=== PATIENT | male | born 1975 | race Caucasian/White ===

== ENCOUNTER 2018-10-20 14:58 | Inpatient (IN) | payer MEDICARE, MEDICAID ==
[~2018-10-20] VITALS: Ht 304.8 cm; Wt 70.8 kg
[2018-10-20] MEDS ORDERED: ASPIRIN 81MG TABLET PO ONE (15:30)
[2018-10-20] MEDS ORDERED: TRAMADOL 50MG TABLET PO ONE (15:45)
[2018-10-20] MEDS: METHOCARBAMOL 750MG TABLET PO SCH (16:13)
[2018-10-20] MEDS ORDERED: METHOCARBAMOL 750MG TABLET PO NR (16:30)
[2018-10-20] MEDS ORDERED: LORAZEPAM 1MG TABLET PO ONE (20:45)
[2018-10-20 23:18] LABS: CHLORIDE 106 mEq/L (98-107)
[2018-10-20 23:19] LABS: BASOPHILS % 0.6 % (0.0-2.0); EOSINOPHILS % 4.1 % (0.0-5.0); HEMOGLOBIN. 10.3 g/dL (14.0-18.0); LYMPHOCYTES % 26.1 % (20.0-50.0); MEAN CORPUSCULAR HEMOGLOBIN 20.4 pg (28.0-32.0); MEAN CORPUSCULAR VOLUME 65.2 fL (80.0-94.0); MEAN PLATELET VOLUME 8.5 fl (7.4-10.4); MONOCYTES % 6.3 % (2.0-8.0); NEUTROPHILS % 62.9 % (40.0-76.0); PLATELET 353 x1000/uL (130-400); RED BLOOD CELL COUNT 5.06 mill/uL (4.7-6.1)
[2018-10-20 23:29] LABS: PLATELET ESTIMATE NORMAL
[2018-10-21] MEDS: QUETIAPINE FUMARATE 100MG TABLET PO SCH ×2 (00:03→09:00)
[2018-10-21] MEDS: METHOCARBAMOL 750MG TABLET PO SCH ×2 (05:08→14:00)
[2018-10-21] MEDS ORDERED: LORAZEPAM 1MG TABLET PO ONE (05:15)
[2018-10-21] MEDS ORDERED: LORAZEPAM 2MG/ML CPJ IV ONE (05:30)
[2018-10-22] MEDS ORDERED: LORAZEPAM 0.5MG TABLET PO ONE (02:00)
[2018-10-22] MEDS ORDERED: VANCOMYCIN 1 G PREMIX 200 ML IV SCH (11:00)
[2018-10-22 12:33] LABS: CLARITY URINE CLOUDY (CLEAR); COLOR URINE YELLOW (YELLOW); KETONES URINE NEGATIVE (NEGATIVE); LEUKOCYTE ESTERASE URINE 3+ (NEGATIVE); NITRITE URINE NEGATIVE (NEGATIVE); OCCULT BLOOD URINE NEGATIVE (NEGATIVE); PH URINE 7.5 (4.5-8.0); PROTEIN URINE NEGATIVE (NEGATIVE); SPECIFIC GRAVITY URINE 1.012 (1.005-1.030); UROBILINOGEN URINE 0.2 E.U./dL (0.2-1.0)
[2018-10-22] MEDS ORDERED: LORAZEPAM 2MG/ML CPJ IM STA (13:03)
[2018-10-22] MEDS: METHOCARBAMOL 750MG TABLET PO SCH (13:48)
[2018-10-22] MEDS ORDERED: DIPHENHYDRAMINE 50MG/ML VIAL IM ONE (14:45)
[2018-10-22] MEDS ORDERED: LORAZEPAM 2MG/ML CPJ IM ONE (14:45)
[2018-10-22] MEDS ORDERED: ACETAMINOPHEN 325MG TABLET PO PRN (20:15)
[2018-10-22] MEDS ORDERED: DIPHENHYDRAMINE 50MG/ML VIAL IV PRN (20:15)
[2018-10-22] MEDS ORDERED: MAGNESIUM/ALUMINUM HYDROXIDE/SIMETHICONE 30ML UDC PO PRN (20:15)
[2018-10-22] MEDS ORDERED: GUAIFENESIN 200MG/10ML SUGAR FREE UDC PO PRN (20:15)
[2018-10-22] MEDS ORDERED: PIPERACILLIN/TAZ 3.375G PREMIX 50 ML IV SCH (20:15)
[2018-10-22] MEDS ORDERED: ONDANSETRON HCL 4MG/2ML INJ IV PRN (20:15)
[2018-10-22] MEDS ORDERED: QUETIAPINE FUMARATE 100MG TABLET PO NR (23:30)
[2018-10-23 02:47] VITALS: BP 110/73
[2018-10-23] MEDS: IBUPROFEN 600MG TABLET PO PRN ×2 (03:24→12:11)
[2018-10-23 03:30] VITALS: BP 110/73
[2018-10-23] MEDS: PIPERACILLIN/TAZ 3.375G PREMIX 50 ML IV SCH ×2 (06:00→14:22)
[2018-10-23] MEDS: SODIUM CHLORIDE 0.9% INJ 3ML FLUSH IVF SCH ×3 (06:00→22:00)
[2018-10-23] MEDS: FERROUS SULFATE 325MG TABLET PO SCH ×3 (07:50→17:50)
[2018-10-23] MEDS: VANCOMYCIN 750 MG PREMIX 150 ML IV SCH ×2 (08:00→16:17)
[2018-10-23 08:23] LABS: *AMPHETAMINES SCREEN URINE NEGATIVE (NEGATIVE); *BARBITURATES SCREEN URINE NEGATIVE (NEGATIVE); *BENZODIAZEPINES SCREEN URINE NEGATIVE (NEGATIVE); *COCAINE SCREEN URINE NEGATIVE (NEGATIVE)
[2018-10-23 08:24] LABS: CANNABINOID URINE SCREEN NEGATIVE (NEGATIVE); METHADONE URINE SCREEN NEGATIVE (NEGATIVE); OPIATES URINE SCREEN NEGATIVE (NEGATIVE); PHENCYCLIDINE URINE SCREEN NEGATIVE (NEGATIVE)
[2018-10-23] MEDS: QUETIAPINE FUMARATE 100MG TABLET PO SCH ×2 (08:34→21:00)
[2018-10-23] MEDS ORDERED: INFLUENZA VIRUS VACCINE(AFLURIA) 0.5ML SYR IM ONE (10:00)
[2018-10-23 12:00] VITALS: BP 97/60
[2018-10-23] MEDS: LORAZEPAM 1MG TABLET PO PRN ×2 (12:12→20:03)
[2018-10-23] MEDS: SODIUM HYPOCHLORITE 0.125% 473ML SOLUTION TOP SCH (14:22)
[2018-10-23] MEDS: HYDROCODONE/ACETAMINOPHEN 5/325MG TABLET PO PRN (18:24)
[2018-10-23 20:00] VITALS: BP 97/43
[2018-10-24] MEDS: SODIUM CHLORIDE 0.9% INJ 3ML FLUSH IVF SCH ×3 (06:39→22:03)
[2018-10-24] MEDS: FERROUS SULFATE 325MG TABLET PO SCH ×3 (07:50→17:24)
[2018-10-24] MEDS: QUETIAPINE FUMARATE 100MG TABLET PO SCH ×2 (08:20→20:38)
[2018-10-24] MEDS: HYDROCODONE/ACETAMINOPHEN 5/325MG TABLET PO PRN ×3 (08:20→21:33)
[2018-10-24] MEDS: SODIUM HYPOCHLORITE 0.125% 473ML SOLUTION TOP SCH (08:28)
[2018-10-24] MEDS: LORAZEPAM 1MG TABLET PO PRN ×2 (11:40→20:00)
[2018-10-24] MEDS: IPRATROPIUM/ALBUTEROL 0.5-3(2.5)MG/3ML NEB INH PRN (21:12)
[2018-10-25 04:00] VITALS: BP 132/80
[2018-10-25] MEDS: LORAZEPAM 1MG TABLET PO PRN ×3 (05:26→21:09)
[2018-10-25] MEDS: SODIUM CHLORIDE 0.9% INJ 3ML FLUSH IVF SCH ×3 (06:00→22:00)
[2018-10-25] MEDS: FERROUS SULFATE 325MG TABLET PO SCH ×3 (07:50→17:50)
[2018-10-25 08:00] VITALS: BP 135/86
[2018-10-25] MEDS: SODIUM HYPOCHLORITE 0.125% 473ML SOLUTION TOP SCH (09:00)
[2018-10-25] MEDS: HYDROCODONE/ACETAMINOPHEN 5/325MG TABLET PO PRN (09:04)
[2018-10-25] MEDS: QUETIAPINE FUMARATE 100MG TABLET PO SCH ×2 (09:11→20:42)
[2018-10-25 12:00] VITALS: BP 97/56
[2018-10-25] MEDS: PIPERACILLIN/TAZ 3.375G PREMIX 50 ML IV SCH (18:00)
[2018-10-25 20:00] VITALS: BP 129/70
[2018-10-25] MEDS ORDERED: DIPHENHYDRAMINE 50MG CAPSULE PO ONE (22:00)
[2018-10-25] MEDS: TRAZODONE HCL 100MG TABLET PO SCH (22:28)
[2018-10-25] MEDS ORDERED: ONDANSETRON HCL 4MG/2ML INJ IV PRN (23:15)
[2018-10-25] MEDS ORDERED: SODIUM CHLORIDE 0.9% 1,000 ML IV SCH (23:15)
[2018-10-25] MEDS ORDERED: ACETAMINOPHEN 325MG TABLET PO PRN (23:15)
[2018-10-25] MEDS ORDERED: DEXTROSE 50% WATER 50ML SYRINGE IV PRN (23:30)
[2018-10-26] VITALS: BP 89/56
[2018-10-26] MEDS: HYDROCODONE/ACETAMINOPHEN 5/325MG TABLET PO PRN (00:38)
[2018-10-26] MEDS: IPRATROPIUM/ALBUTEROL 0.5-3(2.5)MG/3ML NEB INH PRN (01:57)
[2018-10-26] MEDS: PIPERACILLIN/TAZ 3.375G PREMIX 50 ML IV SCH ×3 (02:00→16:05)
[2018-10-26 04:00] VITALS: BP 97/52
[2018-10-26] MEDS: LORAZEPAM 1MG TABLET PO PRN ×3 (04:58→20:29)
[2018-10-26] MEDS: SODIUM CHLORIDE 0.9% INJ 3ML FLUSH IVF SCH ×3 (06:00→22:00)
[2018-10-26 07:03] VITALS: BP 84/46
[2018-10-26] MEDS ORDERED: BLOOD SUGAR DIAGNOSTIC STRIP TEST SCH (07:20)
[2018-10-26] MEDS ORDERED: INSULIN LISPRO 100 UNITS/ML SUBCUT SCH (07:20)
[2018-10-26] MEDS ORDERED: INSULIN LISPRO (HIGH DOSE) 100 UNITS/ML SUBCUT SCH (07:50)
[2018-10-26] MEDS: FERROUS SULFATE 325MG TABLET PO SCH ×4 (07:50→16:05)
[2018-10-26] MEDS: SODIUM HYPOCHLORITE 0.125% 473ML SOLUTION TOP SCH (09:00)
[2018-10-26] MEDS: QUETIAPINE FUMARATE 100MG TABLET PO SCH ×3 (09:00→20:29)
[2018-10-26] MEDS ORDERED: ASPIRIN 81MG TABLET PO SCH (09:00)
[2018-10-26 12:00] VITALS: BP 111/65
[2018-10-26] MEDS: IBUPROFEN 600MG TABLET PO PRN (14:55)
[2018-10-26 16:00] VITALS: BP 142/92
[2018-10-26 20:00] VITALS: BP 90/47
[2018-10-26] MEDS: TRAZODONE HCL 100MG TABLET PO SCH (23:00)
[2018-10-27] VITALS: BP 108/68
[2018-10-27] MEDS: HYDROCODONE/ACETAMINOPHEN 5/325MG TABLET PO PRN (00:10)
[2018-10-27] MEDS: PIPERACILLIN/TAZ 3.375G PREMIX 50 ML IV SCH ×3 (02:00→17:55)
[2018-10-27 04:00] VITALS: BP 102/70
[2018-10-27] MEDS: LORAZEPAM 1MG TABLET PO PRN ×2 (05:04→13:09)
[2018-10-27] MEDS: SODIUM CHLORIDE 0.9% INJ 3ML FLUSH IVF SCH ×3 (06:00→21:13)
[2018-10-27] MEDS: FERROUS SULFATE 325MG TABLET PO SCH ×3 (07:50→17:50)
[2018-10-27 08:00] VITALS: BP 124/61
[2018-10-27] MEDS: SODIUM HYPOCHLORITE 0.125% 473ML SOLUTION TOP SCH (08:58)
[2018-10-27] MEDS: QUETIAPINE FUMARATE 100MG TABLET PO SCH ×5 (08:58→22:42)
[2018-10-27 12:00] VITALS: BP 107/69
[2018-10-27] MEDS: TRAZODONE HCL 100MG TABLET PO SCH (21:08)
[2018-10-28] MEDS: HYDROCODONE/ACETAMINOPHEN 5/325MG TABLET PO PRN ×2 (00:08→12:40)
[2018-10-28] MEDS: PIPERACILLIN/TAZ 3.375G PREMIX 50 ML IV SCH ×3 (02:00→17:42)
[2018-10-28] MEDS: SODIUM CHLORIDE 0.9% INJ 3ML FLUSH IVF SCH ×2 (05:38→22:00)
[2018-10-28] MEDS: FERROUS SULFATE 325MG TABLET PO SCH ×3 (07:50→17:42)
[2018-10-28] MEDS: SODIUM HYPOCHLORITE 0.125% 473ML SOLUTION TOP SCH (09:00)
[2018-10-28] MEDS: LORAZEPAM 1MG TABLET PO PRN ×2 (10:50→21:10)
[2018-10-28 12:00] VITALS: BP_SYST 103; BP_SYST 120; BP_DIAS 50; BP_DIAS 68
[2018-10-28 16:00] VITALS: BP 103/61
[2018-10-28] MEDS: QUETIAPINE FUMARATE 100MG TABLET PO SCH (21:00)
[2018-10-28] MEDS: TRAZODONE HCL 100MG TABLET PO SCH (21:00)
[2018-10-29] MEDS: PIPERACILLIN/TAZ 3.375G PREMIX 50 ML IV SCH ×3 (02:00→17:10)
[2018-10-29] MEDS: SODIUM CHLORIDE 0.9% INJ 3ML FLUSH IVF SCH ×3 (06:00→22:00)
[2018-10-29] MEDS: FERROUS SULFATE 325MG TABLET PO SCH ×3 (07:50→17:10)
[2018-10-29] MEDS: SODIUM HYPOCHLORITE 0.125% 473ML SOLUTION TOP SCH (08:44)
[2018-10-29] MEDS: QUETIAPINE FUMARATE 100MG TABLET PO SCH ×2 (08:46→20:10)
[2018-10-29] MEDS: LORAZEPAM 1MG TABLET PO PRN ×2 (10:02→18:03)
[2018-10-29] MEDS: TRAZODONE HCL 100MG TABLET PO SCH (20:10)
[2018-10-29] MEDS ORDERED: QUETIAPINE FUMARATE 100MG TABLET PO SCH (21:00)
[2018-10-30] MEDS: PIPERACILLIN/TAZ 3.375G PREMIX 50 ML IV SCH ×3 (01:51→17:24)
[2018-10-30] MEDS: SODIUM CHLORIDE 0.9% INJ 3ML FLUSH IVF SCH ×3 (05:11→22:00)
[2018-10-30] MEDS: FERROUS SULFATE 325MG TABLET PO SCH ×3 (07:50→17:23)
[2018-10-30] MEDS: SODIUM HYPOCHLORITE 0.125% 473ML SOLUTION TOP SCH (08:19)
[2018-10-30] MEDS: LORAZEPAM 1MG TABLET PO PRN ×2 (09:05→15:57)
[2018-10-30] MEDS: TRAZODONE HCL 100MG TABLET PO SCH (20:20)
[2018-10-31] MEDS: LORAZEPAM 1MG TABLET PO PRN ×2 (01:49→12:31)
[2018-10-31] MEDS: SODIUM CHLORIDE 0.9% INJ 3ML FLUSH IVF SCH ×2 (05:08→14:00)
[2018-10-31] MEDS: SODIUM HYPOCHLORITE 0.125% 473ML SOLUTION TOP SCH (09:00)
[2018-10-31] MEDS: FERROUS SULFATE 325MG TABLET PO SCH ×2 (10:42→12:50)
[2018-10-31] MEDS: QUETIAPINE FUMARATE 100MG TABLET PO SCH (10:42)
[2018-10-31 16:10] VITALS: BP 92/60
[2018-10-31 16:35] VITALS: BP 92/60
== END 2018-10-31 17:51 | disposition home or self-care (01) | DRG 593 ==
LOC: ER 14:58 → 6EST 10-22 10:39 → EDBEDREQ 10-22 10:57 → ENRESERV 10-22 20:32 → CANRESERV 10-22 20:32 → EDBEDREQSVC 10-22 22:35 → ENRESERV 10-22 23:56 → 6EST 10-23 22:59
PROVIDERS: ADMIT Internal Medicine; ATTEND Internal Medicine
DX: L89.024 Pressure ulcer of left elbow, stage 4 (principal); G82.20 Paraplegia, unspecified; N39.0 Urinary tract infection, site not specified; R45.851 Suicidal ideations; D64.9 Anemia, unspecified; L89.309 Pressure ulcer of unspecified buttock, unspecified stage; L89.159 Pressure ulcer of sacral region, unspecified stage; F32.9 Major depressive disorder, single episode, unspecified; F41.9 Anxiety disorder, unspecified; Z89.512 Acquired absence of left leg below knee; Z89.511 Acquired absence of right leg below knee; Z93.3 Colostomy status; Z59.0 Homelessness; Z88.1 Allergy status to other antibiotic agents
CPT/HCPCS: 36415; 71045; 80305; 82962; 83880; 84484; 87077; 87186; 93005; 96374; 99284; J1200; J2060; J2543; J3370; J7050; J7620